=== PATIENT | female | born 1990 | race Caucasian/White ===

== ENCOUNTER 2017-08-12 09:48 | Emergency (ER) | payer OTHER ==
--- NOTE | 2017-08-12 10:20 | ED Physician Documentation ---
PD HPI FEMALE - Stated complaint Stated Complaint: FEMALE /POSS - Chief complaint Chief Complaint: Abd Pain - History obtained from History obtained from: Patient - History of Present Illness Timing - onset: Last night Timing - duration: Hours Timing - details: Abrupt onset, Still present Associated symptoms: Pelvic pain, Vaginal bleeding Contributing factors: Similar symptoms before: Has not had sx before Recently seen: Not recently seen - Additional information Additional information: 27-year-old female has had a positive test at home, had her last menstrual period at the end of June, and last night she developed acute gush of fluid followed by bleeding and cramping. She is worried about miscarriage. Review of Systems Constitutional: denies: Fever Eyes: denies: Decreased vision Ears: denies: Ear pain Nose: denies: Congestion Throat: denies: Sore throat Cardiac: denies: Chest pain / pressure Respiratory: denies: Dyspnea, Cough GI: denies: Abdominal Pain, Nausea, Vomiting : reports: Vaginal bleeding. denies: Dysuria, Frequency, Discharge Skin: denies: Rash Musculoskeletal: denies: Neck pain, Back pain PD PAST MEDICAL HISTORY - Past Medical History Past Medical History: No - Past Surgical History Past Surgical History: No - Present Medications Home Medications: Ambulatory Orders Medication Instructions Recorded Confirmed No Known Home Medications [No 08/12/17 08/12/17 Known Home Medications] - Allergies Allergies/Adverse Reactions: Allergies Allergy/AdvReac Type Severity Reaction Status Date / Time No Known Drug Allergies Allergy Verified 08/12/17 09:59 - Social History Does the pt smoke?: No Smoking Status: Never smoker Does the pt drink ETOH?: No Does the pt have substance abuse?: No - Immunizations Immunizations are current?: Yes PD ED PE NORMAL - Vitals Vital signs reviewed: Yes (tachy and hypertensive) - General General: Alert and oriented X 3, No acute distress, Well developed/nourished - HEENT HEENT: Atraumatic, PERRL - Neck Neck: Supple, no meningeal sign - Respiratory Respiratory: No respiratory distress - Back Back: No CVA TTP, No spinal TTP - Derm Derm: Normal color, Warm and dry, No rash - Extremities Extremities: No deformity, No edema - Neuro Neuro: Alert and oriented X 3, No motor deficit, No sensory deficit Eye Opening: Spontaneous Motor: Obeys Commands Verbal: Oriented GCS Score: 15 - Psych Psych: Normal mood, Normal affect Results - Vitals Vitals: Vital Signs - 24 hr 08/12/17 08/12/17 09:54 11:06 Temperature 36.8 C 36.7 C Heart Rate 126 H 81 Respiratory 18 15 Rate Blood Pressure 155/118 H 102/75 O2 Saturation 100 98 Oxygen O2 Source Room air - Labs Labs: Laboratory Tests 08/12/17 08/12/17 10:33 10:37 HCG, Quant 11408.00 Urine Color YELLOW Urine Clarity CLEAR Urine pH 6.0 Ur Specific [place] 1.010 Urine Protein NEGATIVE Urine Glucose (UA) NEGATIVE Urine Ketones NEGATIVE Urine Occult Blood TRACE-INTA Urine Nitrite NEGATIVE Urine Bilirubin NEGATIVE Urine Urobilinogen 0.2 (NORMAL) Ur Leukocyte Esterase NEGATIVE Ur Microscopic Review NOT INDICATED Urine Culture Comments NOT INDICATED Urine HCG, Qual POSITIVE - Rads (name of study) pelvic u/s Radiology: Prelim report reviewed (Impression: 1. A pole but no definite yolk sac is seen. Recommend follow-up imaging. The pole does appear to have cardiac activity. Its size results in a gestational age of 6 weeks 5 days 3 days for an EDC of 04/02/2018. This is compared with the assigned EDC of 2017 based on LMP. 2. Small robin-gestational hemorrhage.), EMP read indepedently , See rad report PD MEDICAL DECISION MAKING - ED course Complexity details: reviewed results, re-evaluated patient, considered differential, d/w patient ED course: 27-year-old female with early has developed acute bleeding and cramping and today on ultrasound evaluation she does have what appears to be an intrauterine with pole and heart tones.I have given the patient a reassuring report and that even with bleeding the fetus with a heart rate is likely to carry to term.We have provided instructions for threatened miscarriage and the patient will follow up with her primary. Departure - Departure Disposition: 01 Home, Self Care Clinical Impression: Threatened Condition: Stable Instructions: ED Miscarriage Poss Follow-Up: SUSIE HARRIS [Primary Care Provider] -
[2017-08-12 10:44] LABS: BILIRUBIN,URINE NEGATIVE (NEGATIVE)
[2017-08-12 10:45] LABS: HCG UR QUAL POSITIVE; UA CHARGE (STRIP ONLY) YES; UR CULTURE IF IND NOT INDICATED
--- NOTE | 2017-08-12 13:43 | Ultrasound Preliminary Report ---
Exam: US OB TRANSVAGINAL IMPRESSION: 1. A pole but no definite yolk sac is seen. Recommend follow-up imaging. The pole does ap pear to have cardiac activity. Its size results in a gestational age of 6 weeks 5 days + or - 3 days for an EDC of 04/02/2018. This is compared with the assigned EDC 04/08/2018 based on LMP. 2. Small robin-gestational hemorrhage. [facility] SITE ID: [id number]
--- NOTE | 2017-08-12 13:43 | Ultrasound Preliminary Report ---
Exam: US OB FIRST TRIMESTER IMPRESSION: 1. A pole but no definite yolk sac is seen. Recommend follow-up imaging. The pole does ap pear to have cardiac activity. Its size results in a gestational age of 6 weeks 5 days + or - 3 days for an EDC of 04/02/2018. This is compared with the assigned EDC 04/08/2018 based on LMP. 2. Small robin-gestational hemorrhage. [facility] SITE ID: [id number]
--- NOTE | 2017-08-12 13:46 | Ultrasound Report ---
EXAM: FIRST TRIMESTER OBSTETRIC ULTRASOUND (Less than 11 weeks) EXAM DATE: 08/12/2017 01:22 PM. CLINICAL HISTORY: Early . Bleeding and pain. Beta-hCG of 45,017. LMP: Unknown. COMPARISONS: None. TECHNIQUE: Transabdominal and transvaginal ultrasound examination with static image documentation. CLINICAL DATES: EGA 5 weeks 6 days with JACQUELINE 04/08/2018 based on and LMP of 07/02/2017. ASSESSMENT: Gestational Sac: Single intrauterine. Mean gestational sac diameter: 18 mm = 6 weeks 5 days. Embryo: CRL (crown-rump length) 3 mm = X weeks 1 day plus or -3 days. Cardiac activity: 110 beats per minute. Yolk sac: Not visualized Amniotic fluid: Not accurately assessed at this gestational age. Early placenta: Not visible at this gestational age. Other: There is a perigestational hemorrhage within the endometrial canal distal to the gestational s ac. It measures 1.3 x 1.0 cm.. MATERNAL STRUCTURES: Uterus: Anteverted. Unremarkable. Cervix: Closed. Right Ovary/Adnexa: Unremarkable. The ovary measures 2.5 x 2.0 x 3.0 cm, volume 8 cc. Left Ovary/Adnexa: Unremarkable. The ovary measures 1.9 x 1.3 x 1.9 cm, volume 2.4 cc. Free Fluid: None. Other: None. IMPRESSION: 1. A pole but no definite yolk sac is seen. Recommend follow-up imaging. The pole does ap pear to have cardiac activity. Its size results in a gestational age of 6 weeks 5 days + or - 3 days for an EDC of 04/02/2018. This is compared with the assigned EDC 04/08/2018 based on LMP. 2. Small robin-gestational hemorrhage. [facility] Referring Provider Line: [phone] SITE ID: [id number]
[2017-08-12 14:22] VITALS: BP 112/76
== END 2017-08-12 14:30 | disposition home or self-care (01) ==
LOC: ED 09:48
DX: O20.0 Threatened abortion (principal); Z3A.01 Less than 8 weeks gestation of pregnancy
CPT/HCPCS: 36415; 76801; 76817; 81001; 81003; 81025; 84702; 87086; 99283

== ENCOUNTER 2018-02-22 09:23 | Emergency (ER) | payer OTHER ==
--- NOTE | 2018-02-22 10:10 | ED Physician Documentation ---
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 swelling recently today RLE more swollen and aching up to the knee sent to ER to rule out DVT no CP SOA going well - no ctx bleeding feels baby moving Review of Systems Constitutional: denies: Fever, Chills Cardiac: denies: Chest pain / pressure Respiratory: denies: Dyspnea GI: denies: Abdominal Pain : reports: Now EGA Musculoskeletal: reports: Extremity pain, Extremity swelling Endocrine: denies: Easy bruising / bleeding Immunocompromised: denies: Immunocompromised PD PAST MEDICAL HISTORY - Past Surgical History Past Surgical History: No - Present Medications Home Medications: Ambulatory Orders Medication Instructions Recorded Confirmed Pnv No.121/Iron/Folic Acid 02/22/18 [ Multivitamin Tablet] - Allergies Allergies/Adverse Reactions: Allergies Allergy/AdvReac Type Severity Reaction Status Date / Time No Known Drug Allergies Allergy Verified 02/22/18 10:01 - Social History Does the pt smoke?: No Smoking Status: Never smoker Does the pt drink ETOH?: No Does the pt have substance abuse?: No - Immunizations Immunizations are current?: Yes PD ED PE NORMAL - Vitals Vital signs reviewed: Yes - General General: Alert and oriented X 3 - HEENT HEENT: PERRL - Neck Neck: Supple, no meningeal sign - Cardiac Cardiac: RRR - Respiratory Respiratory: No respiratory distress, Clear bilaterally - Abdomen Abdomen: Non tender, Other (gravid) - Extremities Extremities: Other (slight edema to RLE, pain with dorsi flex, no cord, MSV intact) Results - Vitals Vitals: Vital Signs - 24 hr 02/22/18 09:35 Temperature 36.2 C L Heart Rate 88 Respiratory 18 Rate Blood Pressure 126/79 O2 Saturation 100 Oxygen O2 Source Room air - Labs Labs: Laboratory Tests 02/22/18 10:13 Urine Color LIGHT YELLOW Urine Clarity CLEAR Urine pH 6.5 Ur Specific [place] <=1.005 Urine Protein NEGATIVE Urine Glucose (UA) NEGATIVE Urine Ketones NEGATIVE Urine Occult Blood NEGATIVE Urine Nitrite NEGATIVE Urine Bilirubin NEGATIVE Urine Urobilinogen 0.2 (NORMAL) Ur Leukocyte Esterase NEGATIVE Ur Microscopic Review NOT INDICATED Urine Culture Comments NOT INDICATED - Rads (name of study) doppler Radiology: See rad report (neg) PD MEDICAL DECISION MAKING - Sepsis Event Vital Signs: Vital Signs - 24 hr 02/22/18 09:35 Temperature 36.2 C L Heart Rate 88 Respiratory 18 Rate Blood Pressure 126/79 O2 Saturation 100 Oxygen O2 Source Room air Departure - Departure Disposition: 01 Home, Self Care Clinical Impression: Leg swelling in Qualifiers: Trimester: third trimester Qualified Code(s): O12.03 - Gestational edema, third trimester Condition: Good Comments: The doppler was negative for a blood clot If the swelling worsens I would recommend a repeat doppler next week - occasionally a small clot can be hard to see on the intial ultrasound Also your blood pressure was fine and there is not protein in your urine so i don't think the swelling is due to pre-eclampsia Recommend elevating your legs when possible and consider wearing support stocking if you will be on your feet all day. Follow up with your OB Return if worse
[2018-02-22 10:25] LABS: BILIRUBIN,URINE NEGATIVE (NEGATIVE); GLUCOSE, URINE (UA) NEGATIVE (NEGATIVE); KETONES,URINE (UA) NEGATIVE (NEGATIVE); LEUKOCYTE ESTERASE, URINE NEGATIVE (NEGATIVE); NITRITE,URINE NEGATIVE (NEGATIVE); OCCULT BLOOD,URINE NEGATIVE (NEGATIVE); PH,URINE 6.5 PH (5.0-7.5); PROTEIN,URINE NEGATIVE (NEGATIVE); UROBILINOGEN,URINE 0.2 (NORMAL) E.U./dL (NORMAL)
[2018-02-22 10:29] LABS: CLARITY,URINE CLEAR (CLEAR)
--- NOTE | 2018-02-22 12:30 | Ultrasound Report ---
Procedure Date: 02/22/2018 Accession Number: [id number] / [id number] Procedure: US - Duplex Ext Veins Right CPT Code: FULL RESULT: EXAM: Duplex Ext Veins Right DATE: 02/22/2018 11:10 AM CLINICAL HISTORY: RLE swelling COMPARISON: None. TECHNIQUE: Real-time sonographic vascular imaging was performed by the mobile home lot utility worker through the lower extremity utilizing both color-flow and Doppler spectral analysis. Multiple retail service representative static images were saved for review. FINDINGS: Right side Common Femoral Vein (CFV): Normal. Superficial Femoral Vein (SFV) Prox: Normal. Superficial Femoral Vein (SFV) Mid: Normal. Superficial Femoral Vein (SFV) Dist: Normal. Popliteal Vein: Normal. Posterior Tibial Veins: Normal. Peroneal Veins: Normal. Other: None. IMPRESSION: Negative. No evidence for deep venous thrombosis right lower extremity. [facility]
[2018-02-22 13:18] VITALS: BP 123/77
== END 2018-02-22 13:18 | disposition home or self-care (01) ==
LOC: ED 09:23
DX: O12.03 Gestational edema, third trimester (principal); Z3A.33 33 weeks gestation of pregnancy
CPT/HCPCS: 81001; 81003; 87086; 99282; 99283

== ENCOUNTER 2018-03-15 15:06 | Outpatient (CLI) | payer OTHER | END 2018-03-15 15:07 | disposition home or self-care (01) | LOC: LAB.R 15:06 | PROVIDERS: ATTEND Nurse Practitioner Obstetrics & Gynecology | DX: Z36.85 Encounter for antenatal screening for Streptococcus B (principal) | CPT/HCPCS: 87081 ==

== ENCOUNTER 2018-03-26 14:50 | Inpatient (IN) | payer OTHER ==
[2018-03-26 15:58] LABS: BASOPHILS # (AUTO) 0.1 10^3/uL (0.0-0.1); EOSINOPHILS # (AUTO) 0.1 10^3/uL (0.0-0.7); EOSINOPHILS % (AUTO) 0.9 %; LYMPHOCYTES # (AUTO) 1.7 10^3/uL (1.5-3.5); LYMPHOCYTES % (AUTO) 19.7 %; MEAN CORPUSCULAR HEMOGLOBIN 30.6 pg (27.0-31.0); MEAN CORPUSCULAR HGB CONC 33.4 g/dL (32.0-36.0); MEAN CORPUSCULAR VOLUME 91.6 fL (81.0-99.0); MEAN PLATELET VOLUME 9.8 fL (7.9-10.8); MONOCYTES # (AUTO) 0.6 10^3/uL (0.0-1.0); MONOCYTES % (AUTO) 7.6 %; NEUTROPHILS # (AUTO) 6.1 10^3/uL (1.5-6.6); NEUTROPHILS % (AUTO) 70.8 %; PLT - PLATELET COUNT 185 10^3/uL (130-450); RED CELL DISTRIBUTION WIDTH 13.5 % (12.0-15.0); WHITE BLOOD COUNT 8.6 x10^3/uL (4.8-10.8)
[2018-03-26 16:41] LABS: CREATININE,URINE 39.9 mg/dL; PROTEIN/CREATININE RATIO,URINE 3.4 (<=0.2)
[2018-03-26] MEDS ORDERED: fentaNYL 100 MCG/2 ML VIAL IVP PRN (16:50)
[2018-03-26] MEDS ORDERED: SODIUM CHLORIDE FLUSH 0.9% 10 ML SYRINGE IVP PRN (16:50)
[2018-03-26] MEDS ORDERED: ONDANSETRON 4 MG/2 ML VIAL IVP PRN ×2 (16:50→22:56)
[2018-03-26] MEDS ORDERED: OXYTOCIN/SODIUM CHLORIDE 500 ML IV SCH (17:00)
--- NOTE | 2018-03-26 17:16 | HISTORY & PHYSICAL EXAMINATION ---
Admit History - Instructions Jena/Slash: -Left hand click circles element as positive or present. -Right hand click slashes element as negative or not present. - Visit Reason Visit Reason: Other - : 2 Parity: 0 Premature: 0 Ectopic: 0 : 1 Care: positive: [facility] Risk/History: positive: None Complications This : positive: Pre-eclampsia Smoking Status: Never smoker - Mother's Labs Mother's Blood Type: positive: O Mother's RH: positive: Positive GBS: positive: Group B Step Negative Rubella Status: positive: Immune Meds/Allgy - Home Medications Home Medications: Ambulatory Orders Medication Instructions Recorded Confirmed Pnv No.121/Iron/Folic Acid 02/22/18 [ Multivitamin Tablet] - Allergies Allergies/Adverse Reactions: Allergies Allergy/AdvReac Type Severity Reaction Status Date / Time No Known Drug Allergies Allergy Verified 02/22/18 10:01 Physical - Abdominal Exam Vital Signs: Temp Pulse Resp BP Pulse Ox 36.9 C 66 18 149/105 H 100 03/26/18 15:02 03/26/18 16:20 03/26/18 15:02 03/26/18 16:20 03/26/18 15:02 Uterine Resting Tone: positive: Soft - Monitoring Heart Rate Baseline: 150 Strip Review: positive: Category I - Presentation Presentation: positive: Vertex - Vaginal Exam Membranes: positive: Membranes intact Dilation (in cm): 3 Effacement (%): 80 Station: positive: -2 Plan for Labor - Plan For Labor I expect patient to be DC'd or transferred within 96 hours.: Yes Plan for Labor: P: AROM Labetalol 100mg PO now Pitocin initiation per protocol Continuous monitoring Serial BP monitoring Epidural per maternal request Plan of care reviewed with Dr. Doss, relationship management lead physician.
[2018-03-26] MEDS ORDERED: LABETALOL 100 MG TABLET PO ONE (17:21)
[2018-03-26] MEDS: LABETALOL 100 MG TABLET PO SCH ×2 (17:44→22:34)
[2018-03-26] MEDS: SODIUM CHLORIDE FLUSH 0.9% 10 ML SYRINGE IVP SCH (17:51)
[2018-03-26] MEDS: LACTATED RINGERS 1,000 ML IV SCH (18:15)
--- NOTE | 2018-03-26 18:17 | PROVIDER PROGRESS NOTE ---
Labor Progress Note - Labor Progress Note Labor Progress Note/Additional Text: 27 yo with a 38w0d IUP Severe pre-eclampsia Consult requested by ANDRA Milner. Agree that patient will need delivery. Recommend MgSO4 for seizure prophylaxis. Start labetalol 100 mg BID to decrease BP. Titrate labetalol to keep BP's in 140-150/80-90's. Will need to continue MgSO4 at least 12 - 24 hours post delivery. Will monitor closely and be happy to take the patient onto the obstetrical service if necessary. Consult dictated: [id number]
--- NOTE | 2018-03-26 18:21 | PROVIDER PROGRESS NOTE ---
Labor Progress Note - Uterine Monitoring Uterine Monitoring Mode: positive: External toco Contraction Frequency (min/apart): 4-6 Contraction Intensity: positive: Mild to moderate Uterine Resting Tone: positive: Soft - Monitoring Monitor Mode: positive: External ultrasound Heart Rate Baseline: 145 Heart Rate Variability: positive: Moderate (6-25 bmp) Accelerations: positive: Present, 15x15 Decelerations: positive: None Strip Review: positive: Category I - Vaginal Exam Dilation (in cm): 3 Effacement (%): 80 Station: -1 Cervical Position: Posterior - Labor Progress Note Labor Progress Note/Additional Text: HPI: Alejandra presents to L&D from the office secondary to increased BP and 3+ proteinuria. NST reactive. Admit to L&D for active management of moderate preeclampsia. S: Pt sitting up in bed for IV start. She is nervous/anxious about being induced and especially nervous about the diagnosis of preeclampsia. She denies SHEEHAN, visual disturbances, RUQ or epigastric pain. Reviewed risks of preeclampsia significantly outweigh the risks of induction. O: BP 149-172/100-106. Protein/creatinine ratio 3.4. Brisk DTRs, no clonus. Hgb 12.0, Hct 35.8, PTL 185, Uric acid 6.0, AST 2.4, LDH 154. Heart RRR w/o M/G/R, lungs CTAB, abdomen gravid, soft, nontender. No RUQ tenderness upon palpation. Bilateral LE's no edema. FHR baseline 145, moderate variability, + accels, no decels. Contractions palpate mild every 3-6 minutes. A: 27yo @ 38.1wks gestation Moderate preeclampsia GBS negative FHR Category I P: MgSO4 initiated for seizure prophylaxis Labetalol 100mg PO bid administered AROM at next SVE Initiation of pitocin per protocol Continuous monitoring. Epidural per maternal request. Dr. Doss, developer relations manager physician notified of patient status and plan of care and is in agreement with the above plan. Will continue to update with patient status change.
--- NOTE | 2018-03-26 18:48 | CONSULTATION NOTE ---
DATE OF SERVICE: 03/26/2018 Physician: Tiarra Doss DO FACOG IDENTIFICATION: This is a 27-year-old G2, P0-0-1-0, with 38 and 0/7-week intrauterine . EDC is 04/09/2018, consistent with a 7-week ultrasound. HISTORY OF PRESENT ILLNESS: I was consulted by Aleshia Milner, ANDRA, DESTINEE to see the patient. She is a patient of the midwifery service here at [facility]. Dolores is a transfer of care from [facility] at about 30 weeks' gestation. She has been seen continuously at our clinic since then. The patient's care with us from 30 weeks' gestation to 36 weeks' gestation has been essentially unremarkable. However today, at her appointment, she was noted to have new onset of blood pressure of 142/90 and 150 /90. Cervical examination in the clinic revealed she was 3 cm dilated, 80% effaced, and 0 station. She was therefore sent over to Labor and Delivery for evaluation of preeclampsia. The patient's labs revealed platelets of 185, uric acid 6.0, AST 24, LDH 154, and a urine protein:creatinine ratio of 3.4. It was noted that she did dip 3+ protein during her clinic visit earlier today. Her labor and delivery blood pressures also reflect her hypertension noted in the office. They were 166/100, 174/110, 174/104, 164/106, and 149/105. The nonstress test is currently reactiveand category 1. There are no decelerations. Given the current clinical situation, the patient does meet criteria for severe preeclampsia. I strongly agree with Aleshia that we should proceed with induction of labor and delivery. In addition, given her diagnosis of severe preeclampsia, I would recommend that we place her on magnesium sulfate for seizure prophylaxis. She should have magnesium sulfate for a minimum of 12-24 hours after delivery. The obstetrical service will continue to consult on the patient and will be happy to take over management should the midwifery service become hesitant about caring for the patient. PAST MEDICAL HISTORY: Unremarkable. She denies any hypertension, diabetes, or thyroid disorder. PAST SURGICAL HISTORY: Appendectomy. ALLERGIES: NO KNOWN DRUG ALLERGIES. MEDICATIONS: vitamins. SOCIAL HISTORY: She denies any tobacco, alcohol, or illicit drug use. This is a female fetus with anticipated name of Liza, and her is Kayden but goes by the nickname Kori. PAST OBSTETRICAL HISTORY: One spontaneous at about 4 weeks' gestation. PAST GYNECOLOGICAL HISTORY: She has had one colposcopy with spontaneous reversion to normal Pap smears afterwards. FAMILY HISTORY: No female carcinoma. REVIEW OF SYSTEMS: Negative unless otherwise stated. OBJECTIVE: Blood pressure 149/105, heart rate 66. We will defer physical examination to pumper gauger apprentice, Bettye, examination. LABORATORY DATA: Blood type O positive. GBS negative. Chlamydia and gonorrhea both negative. Rubella immune. RPR nonreactive. Hepatitis B surface antigen is negative. Hepatitis C is negative. HIV nonreactive. A 7-week ultrasound, on 08/22/2017, is consistent with dates with crown-rump length of 1.1 cm, corresponding to 7 weeks 2 days. On 11/23/2017, anatomical survey is consistent with dates and within normal limits. Anterior placenta. Cervix measured 3.8 cm. ASSESSMENT 1. A 27-year-old G2, P1-0-0-1 with a 38 and 0/7-week intrauterine . 2. Severe preeclampsia. PLAN 1. Agree with induction of labor. 2. Recommend starting labetalol 100 mg 1 tab p.o. b.i.d. and increase as appropriate. 3. Recommend magnesium sulfate for seizure prophylaxis at this time. Will need to continue at least for 12 to 24 hours . 4. We will continue close monitoring, and we will be happy to take over at any point in time. TD: 03/26/2018 18:09 GENEVA
[2018-03-26] MEDS: MAGNESIUM SULFATE 2 GRAM 2 GM/50 ML BAG IV SCH ×2 (19:04→19:23)
[2018-03-26] MEDS: MAGNESIUM SULFATE IN WATER 20 GM/500 ML IV.SOLN IV SCH (19:46)
[2018-03-26] MEDS ORDERED: SODIUM CHLORIDE FLUSH 0.9% 10 ML SYRINGE ONE (20:24)
[2018-03-26] MEDS ORDERED: fent/BUPIV 2 MCG/0.125% 250 ML EP ONE (21:23)
[2018-03-26] MEDS ORDERED: ROPIVACAINE 0.2% PF 20 ML AMPULE ONE (21:24)
[2018-03-26] MEDS ORDERED: ROPIVACAINE 0.2% PF 10 ML AMPULE EPI ONE (22:00)
[2018-03-26] MEDS ORDERED: ePHEDrine 50 MG/ML VIAL IVP PRN (22:56)
[2018-03-26] MEDS ORDERED: LACTATED RINGERS 500 ML IV ONE (22:56)
[2018-03-26] MEDS ORDERED: diphenhydrAMINE INJ 50 MG/ML VIAL IVP PRN (22:56)
[2018-03-26] MEDS ORDERED: NALBUPHINE 10 MG/ML AMP IVP PRN (22:56)
[2018-03-26] MEDS ORDERED: METOCLOPRAMIDE 10 MG/2 ML VIAL IVP PRN (22:56)
[2018-03-26] MEDS ORDERED: NALOXONE 0.4 MG/ML VIAL IVP PRN (22:56)
[2018-03-26] MEDS: ACETAMINOPHEN 325 MG TABLET PO PRN (23:35)
--- NOTE | 2018-03-26 23:41 | PROVIDER PROGRESS NOTE ---
Labor Progress Note - Uterine Monitoring Uterine Monitoring Mode: positive: External toco Contraction Frequency (min/apart): 2-3 Contraction Intensity: positive: Moderate to strong Uterine Resting Tone: positive: Soft - Monitoring Monitor Mode: positive: External ultrasound Heart Rate Baseline: 140 Heart Rate Variability: positive: Moderate (6-25 bmp) Accelerations: positive: Present, 15x15 Decelerations: positive: None Strip Review: positive: Category I - Vaginal Exam Dilation (in cm): 4 Effacement (%): 80 Station: 0 Cervical Position: Midposition - Labor Progress Note Labor Progress Note/Additional Text: S: Pt laying comfortably in bed on left side with epidural. Feeling moderate headache. Denies photophobia or nausea. Denies visual disturbances, RUQ or epigastric pain. supportive at the bedside. Slight fatigue. O: FHR baseline 140, moderate variability, + accels, no decels. Contractions palpate strong every 2-4 minutes with soft resting tone. SVE 4/80/0, vertex, medium consistency, soft. BP 127/92, P 81, Afebrile Pitocin @ 6 MgSO4 3g/hr maintenance dose A: 27yo @ 38.0 wks gestation Moderate preeclampsia S/p MgSO4 6g loading dose BP improved with administration of 100mg PO labetalol AROM x 5 hours - Afebrile GBS neg P: Continue MgSO4 administration @ 3g/hr maintenance Continue titration of pitocin per protocol Continue labetalol 100mg PO bid and titrate per BP PRN Repeat PIH labs and MgSO4 level pending. Epidural working well for pain management. Anticipate spontaneous vaginal delivery
[2018-03-26 23:47] LABS: BASOPHILS # (AUTO) 0.1 10^3/uL (0.0-0.1); BASOPHILS % (AUTO) 0.9 %; EOSINOPHILS % (AUTO) 0.2 %; HGB - HEMOGLOBIN 11.5 g/dL (12.0-16.0); LYMPHOCYTES # (AUTO) 1.4 10^3/uL (1.5-3.5); LYMPHOCYTES % (AUTO) 12.2 %; MEAN CORPUSCULAR HEMOGLOBIN 30.5 pg (27.0-31.0); MEAN CORPUSCULAR HGB CONC 34.1 g/dL (32.0-36.0); MEAN CORPUSCULAR VOLUME 89.7 fL (81.0-99.0); MEAN PLATELET VOLUME 10.2 fL (7.9-10.8); MONOCYTES # (AUTO) 0.6 10^3/uL (0.0-1.0); MONOCYTES % (AUTO) 5.5 %; NEUTROPHILS # (AUTO) 9.3 10^3/uL (1.5-6.6); NEUTROPHILS % (AUTO) 81.2 %; PLT - PLATELET COUNT 189 10^3/uL (130-450); RED BLOOD COUNT 3.76 10^6/uL (4.20-5.40); WHITE BLOOD COUNT 11.5 x10^3/uL (4.8-10.8)
[2018-03-26 23:56] LABS: URIC ACID 3.9 mg/dL (2.6-7.2)
[2018-03-27] MEDS ORDERED: LACTATED RINGERS 1,000 ML IV ONE (01:58)
[2018-03-27] MEDS: LACTATED RINGERS 1,000 ML IV SCH (03:21)
[2018-03-27] MEDS ORDERED: ACETAMINOPHEN 500 MG TABLET PO PRN (05:25)
[2018-03-27] MEDS: MAGNESIUM SULFATE IN WATER 20 GM/500 ML IV.SOLN IV SCH ×2 (05:43→15:51)
[2018-03-27] MEDS: ACETAMINOPHEN 325 MG TABLET PO PRN (05:45)
--- NOTE | 2018-03-27 08:08 | PROVIDER PROGRESS NOTE ---
Labor Progress Note - Uterine Monitoring Uterine Monitoring Mode: positive: External toco Contraction Frequency (min/apart): 2-6 Contraction Intensity: positive: Strong Uterine Resting Tone: positive: Soft - Monitoring Monitor Mode: positive: External ultrasound Heart Rate Baseline: 140 Heart Rate Variability: positive: Moderate (6-25 bmp) Accelerations: positive: Present, 15x15 Decelerations: positive: Early, Late Strip Review: positive: Category II - Vaginal Exam Dilation (in cm): 8 Effacement (%): 100 Station: 1 - Labor Progress Note Labor Progress Note/Additional Text: S: Patient breathing through contractions and feels her epidural is no longer relieving her pain. She rates her pain 9/10. Reports moderate headache. Denies visual disturbances, RUQ or epigastric pain. supportive at the bedside. O: BP 138/96, P 109; 99% O2 on Room Air; Afebrile FHR baseline 150, moderate variability, + accels, occasional early decelerations , one late deceleration which quickly returned to baseline. Contractions palpate strong every 1.5-4.5min lasting 60-90 seconds with soft resting tone. SVE8/100/-1, anterior, soft. A: 27yo @ 38.1 wks gestation Moderate preeclampsia GBS neg FHR Category II - overall reassuring P: Continue MgSO4 administration for seizure prophylaxis at 2g/hr maintenance Labetalol 100mg PO bid adminstration will occur at 0900. Shell Azevedo CRNA at bedside to bolus patient's epidural due to her continued discomfort and inadequate pain control. Continuous monitoring Plan of care reviewed with Dr. Leahy, innovation analyst physician whom is aware of patient 's status and is in agreement with the above plan. Anticipate spontaneous vaginal delivery Patient and denies further questions or concerns at this time. Reevaluate in 2 hours or sooner PRN.
[2018-03-27] MEDS ORDERED: fentaNYL 100 MCG/2 ML VIAL ONE (08:11)
[2018-03-27 08:23] LABS: BASOPHILS # (AUTO) 0.1 10^3/uL (0.0-0.1); BASOPHILS % (AUTO) 0.5 %; EOSINOPHILS % (AUTO) 0.2 %; HGB - HEMOGLOBIN 11.8 g/dL (12.0-16.0); LYMPHOCYTES # (AUTO) 1.3 10^3/uL (1.5-3.5); LYMPHOCYTES % (AUTO) 9.5 %; MEAN CORPUSCULAR HEMOGLOBIN 30.4 pg (27.0-31.0); MEAN CORPUSCULAR HGB CONC 33.2 g/dL (32.0-36.0); MEAN CORPUSCULAR VOLUME 91.5 fL (81.0-99.0); MEAN PLATELET VOLUME 9.6 fL (7.9-10.8); MONOCYTES # (AUTO) 0.9 10^3/uL (0.0-1.0); MONOCYTES % (AUTO) 6.4 %; NEUTROPHILS # (AUTO) 11.1 10^3/uL (1.5-6.6); NEUTROPHILS % (AUTO) 83.4 %; PLT - PLATELET COUNT 196 10^3/uL (130-450); RED BLOOD COUNT 3.88 10^6/uL (4.20-5.40); RED CELL DISTRIBUTION WIDTH 13.4 % (12.0-15.0); WHITE BLOOD COUNT 13.3 x10^3/uL (4.8-10.8)
[2018-03-27 08:35] LABS: URIC ACID 6.7 mg/dL (2.6-7.2)
[2018-03-27] MEDS: LABETALOL 100 MG TABLET PO SCH ×2 (09:03→20:31)
--- NOTE | 2018-03-27 09:35 | PROVIDER PROGRESS NOTE ---
Labor Progress Note - Uterine Monitoring Uterine Monitoring Mode: positive: External toco Contraction Intensity: positive: Moderate to strong - Monitoring Monitor Mode: positive: External ultrasound Heart Rate Baseline: 140's Heart Rate Variability: positive: Moderate (6-25 bmp) Accelerations: positive: Present, 15x15 Decelerations: positive: None Strip Review: positive: Category I - Labor Progress Note Labor Progress Note/Additional Text: 27 yo with a 38w1d IUP Severe pre-eclampsia Theraputic level of Magnesium Good labor progress. Expect shortly Continue MgSO4 2 gm/ hr for at least 12 - 24 hours depending on clinical situation
[2018-03-27] MEDS ORDERED: miSOPROStol 200 MCG TABLET PO STA (10:05)
[2018-03-27] MEDS ORDERED: miSOPROStol 100 MCG TABLET BC SCH (10:05)
[2018-03-27] MEDS ORDERED: WITCH HAZEL/GLYCERIN 1 EACH MED..PAD TOP PRN (10:19)
[2018-03-27] MEDS ORDERED: OXYTOCIN/SODIUM CHLORIDE 250 ML IV ONE (10:19)
[2018-03-27] MEDS ORDERED: HYDROCORTISONE/PRAMOXINE 10 GM PR PRN (10:19)
--- NOTE | 2018-03-27 10:41 | DELIVERY NOTE ---
Delivery Note - Labor Labor: positive: Augmented by ARM, Augmented by oxytocin - Delivery Method Delivery Method: positive: Spontaneous vaginal delivery - Presentation Presentation: positive: Vertex, ISMAEL - left occiput anterior - Nuchal Cord Nuchal Cord: positive: None - Amniotic Fluid Description Amniotic Fluid Description: positive: Clear - Episiotomy Type Episiotomy Type: positive: None - Laceration Laceration: positive: None - Delivery Outcome Delivery Outcome: positive: Livebirth - Benedict : positive: Placed in direct skin contact with mother, Bulb syringe, Stimulated, Warmed, [place] used sex: positive: Female - Cord Cord: positive: 3 vessels - Placenta Placenta: positive: Intact, Spontaneous - Estimated Blood Loss Estimated Blood Loss (in cc): 400 - Post Delivery Events Post Delivery Events: positive: No post delivery events - Delivery Comments (Free Text/Narrative) Delivery Comments (Free Text/Narrative): Labor: This 27yo @ 38.1wks gestation presented 03/26/2018 from the office for evaluation of acute hypertension. Lab evaluation met diagnostic criteria for moderate preeclampsia. Cervix was 3/80/-2 and she was admitted to [facility] for active management. 100mg labetalol PO administered and has adequately controlled her BP throughout her labor course. She received MgSO4 6g bolus followed by MgSO4 2 g/hr maintenance dose. AROM at 1900 on 03/26/2018, a moderate amount of clear fluid. Epidural per maternal request. Pitocin administered for augmentation of labor for a max dosage of 18. FHR baseline 140s with few early variable decelerations and one late deceleration with quick return to baseline - overall Category I and reassuring. The patient progressed to c/c/+1 with urge to push and adequate maternal pushing effort at 0908. : Normal of viable female infant name Liza Chambers. No nuchal. Umbilical cord avulsed with movement of infant from perineum to maternal abdomen for an EBL of maximum 25mL as it was clamped in a timely fashion. ' s 7 and 8 at 1 and 5 min respectively at 1002 on 03/27/2018. The was placed on maternal abdomen, stimulated, dried, and placed skin to skin. Unable to obtain cord blood due to cord avulsing. Placenta delivered spontaneously and intact at 1004. 3VC. Pitocin administered via IV for hemostasis. Brisk vaginal bleeding noted with intermediate return to firm with vigorous fundal massage. With discontinuation of fundal massage, brisk vaginal bleeding was again noted and 600mcg cytotec BC administered. No further bleeding noted. EBL 400mL. The perineum, vagina, and cervix were inspected and found to be intact. Infant skin to skin and family is bonding well. Both mother and baby are in stable condition.
[2018-03-27] MEDS ORDERED: LACTATED RINGERS 1,000 ML IV SCH (11:00)
[2018-03-27] MEDS: IBUPROFEN 800 MG TABLET PO PRN ×2 (14:37→22:38)
--- NOTE | 2018-03-27 15:31 | PROVIDER PROGRESS NOTE ---
Subjective - Subjective Subjective: S: Patient tired. Struggling slightly with . States baby is able to get latched for short intervals. Maternal colostrum is able to be hand expressed. Bleeding moderate. Denies SHEEHAN, visual disturbances, RUQ or epigastric pain. O: Hgb 12.o-->11.5-->11.8; Hct 35.8-->33.8-->35.5; PLT 185-->189-->196 Uric acid 6.0-->3.9-->6.7; AST 24-->12-->24; LDH 154-->126-->157 MgSO4 5.2-->5.9 Afebrile; normotensive A: 27yo @ 38.1wks gestation Severe preeclampsia S/p MgSO4 6g bolus dose initially MgSO4 2g/hr maintenance infusing Labetalol 100mg PO bid P: Continue MgSO4 until 24 hours Serial BPs with administration of 100mg labetalol PO bid Plan of care reviewed with Dr. Leahy, public relations director physician, who is in agreement with above plan. Objective - Vital Signs/Intake & Output Vital Signs: Vital Signs x48h Temp Pulse Resp BP Pulse Ox 03/27/18 15:23 37.1 C 91 16 119/82 H 98 Intake & Output: Intake & Output 03/24/18 03/25/18 03/26/18 03/27/18 23:59 23:59 23:59 23:59 Intake Total 162.444 1863.533 Output Total 275 1625 Balance -74.650 -77.467 - Lab Results Fish Bones: 03/27/18 08:12 Other Labs: Lab Results x24hrs 03/27/18 03/27/18 03/27/18 Range/Units 08:12 08:12 08:12 WBC 13.3 H (4.8-10.8) x10^3/uL RBC 3.88 L (4.20-5.40) 10^6/uL Hgb 11.8 L (12.0-16.0) g/dL Hct 35.5 L (37.0-47.0) % MCV 91.5 (81.0-99.0) fL MCH 30.4 (27.0-31.0) pg MCHC 33.2 (32.0-36.0) g/dL RDW 13.4 (12.0-15.0) % Plt Count 196 (130-450) 10^3/uL MPV 9.6 (7.9-10.8) fL Neut # (Auto) 11.1 H (1.5-6.6) 10^3/uL Lymph # (Auto) 1.3 L (1.5-3.5) 10^3/uL Hart # (Auto) 0.9 (0.0-1.0) 10^3/uL Eos # (Auto) 0.0 (0.0-0.7) 10^3/uL Baso # (Auto) 0.1 (0.0-0.1) 10^3/uL Absolute Nucleated RBC 0.01 x10^3/uL Nucleated RBC % 0.0 /100WBC Uric Acid 6.7 (2.6-7.2) mg/dL Magnesium 5.9 H* (1.7-2.8) mg/dL AST 24 (10-42) IU/L Lactate Dehydrogenase (91-225) IU/L Urine Creatinine mg/dL Ur Total Protein Timed mg/dL Protein/Creatinin Ratio (<=0.2) Blood Type 03/27/18 03/26/18 03/26/18 Range/Units 08:12 23:35 23:35 WBC 11.5 H (4.8-10.8) x10^3/uL RBC 3.76 L (4.20-5.40) 10^6/uL Hgb 11.5 L (12.0-16.0) g/dL Hct 33.8 L (37.0-47.0) % MCV 89.7 (81.0-99.0) fL MCH 30.5 (27.0-31.0) pg MCHC 34.1 (32.0-36.0) g/dL RDW 13.0 (12.0-15.0) % Plt Count 189 (130-450) 10^3/uL MPV 10.2 (7.9-10.8) fL Neut # (Auto) 9.3 H (1.5-6.6) 10^3/uL Lymph # (Auto) 1.4 L (1.5-3.5) 10^3/uL Hart # (Auto) 0.6 (0.0-1.0) 10^3/uL Eos # (Auto) 0.0 (0.0-0.7) 10^3/uL Baso # (Auto) 0.1 (0.0-0.1) 10^3/uL Absolute Nucleated RBC 0.00 x10^3/uL Nucleated RBC % 0.0 /100WBC Uric Acid 3.9 (2.6-7.2) mg/dL Magnesium (1.7-2.8) mg/dL AST 12 (10-42) IU/L Lactate Dehydrogenase 157 (91-225) IU/L Urine Creatinine mg/dL Ur Total Protein Timed mg/dL Protein/Creatinin Ratio (<=0.2) Blood Type 03/26/18 03/26/18 03/26/18 Range/Units 23:35 23:25 21:41 WBC (4.8-10.8) x10^3/uL RBC (4.20-5.40) 10^6/uL Hgb (12.0-16.0) g/dL Hct (37.0-47.0) % MCV (81.0-99.0) fL MCH (27.0-31.0) pg MCHC (32.0-36.0) g/dL RDW (12.0-15.0) % Plt Count (130-450) 10^3/uL MPV (7.9-10.8) fL Neut # (Auto) (1.5-6.6) 10^3/uL Lymph # (Auto) (1.5-3.5) 10^3/uL Hart # (Auto) (0.0-1.0) 10^3/uL Eos # (Auto) (0.0-0.7) 10^3/uL Baso # (Auto) (0.0-0.1) 10^3/uL Absolute Nucleated RBC x10^3/uL Nucleated RBC % /100WBC Uric Acid (2.6-7.2) mg/dL Magnesium 5.2 H* (1.7-2.8) mg/dL AST (10-42) IU/L Lactate Dehydrogenase 126 (91-225) IU/L Urine Creatinine mg/dL Ur Total Protein Timed mg/dL Protein/Creatinin Ratio (<=0.2) Blood Type O POSITIVE 03/26/18 03/26/18 03/26/18 Range/Units 15:35 15:35 15:35 WBC 8.6 (4.8-10.8) x10^3/uL RBC 3.90 L (4.20-5.40) 10^6/uL Hgb 12.0 (12.0-16.0) g/dL Hct 35.8 L (37.0-47.0) % MCV 91.6 (81.0-99.0) fL MCH 30.6 (27.0-31.0) pg MCHC 33.4 (32.0-36.0) g/dL RDW 13.5 (12.0-15.0) % Plt Count 185 (130-450) 10^3/uL MPV 9.8 (7.9-10.8) fL Neut # (Auto) 6.1 (1.5-6.6) 10^3/uL Lymph # (Auto) 1.7 (1.5-3.5) 10^3/uL Hart # (Auto) 0.6 (0.0-1.0) 10^3/uL Eos # (Auto) 0.1 (0.0-0.7) 10^3/uL Baso # (Auto) 0.1 (0.0-0.1) 10^3/uL Absolute Nucleated RBC 0.00 x10^3/uL Nucleated RBC % 0.0 /100WBC Uric Acid 6.0 (2.6-7.2) mg/dL Magnesium (1.7-2.8) mg/dL AST 24 (10-42) IU/L Lactate Dehydrogenase 154 (91-225) IU/L Urine Creatinine mg/dL Ur Total Protein Timed mg/dL Protein/Creatinin Ratio (<=0.2) Blood Type 03/26/18 Range/Units 15:15 WBC (4.8-10.8) x10^3/uL RBC (4.20-5.40) 10^6/uL Hgb (12.0-16.0) g/dL Hct (37.0-47.0) % MCV (81.0-99.0) fL MCH (27.0-31.0) pg MCHC (32.0-36.0) g/dL RDW (12.0-15.0) % Plt Count (130-450) 10^3/uL MPV (7.9-10.8) fL Neut # (Auto) (1.5-6.6) 10^3/uL Lymph # (Auto) (1.5-3.5) 10^3/uL Hart # (Auto) (0.0-1.0) 10^3/uL Eos # (Auto) (0.0-0.7) 10^3/uL Baso # (Auto) (0.0-0.1) 10^3/uL Absolute Nucleated RBC x10^3/uL Nucleated RBC % /100WBC Uric Acid (2.6-7.2) mg/dL Magnesium (1.7-2.8) mg/dL AST (10-42) IU/L Lactate Dehydrogenase (91-225) IU/L Urine Creatinine 39.9 mg/dL Ur Total Protein Timed 135 mg/dL Protein/Creatinin Ratio 3.4 H (<=0.2) Blood Type
--- NOTE | 2018-03-27 17:51 | PROVIDER PROGRESS NOTE ---
Subjective - Subjective Subjective: S: Patient sitting up in bed . Improved ease of and baby is vigorous at the breast. Bleeding minimal. Mood is good although she is fatigued. Denies SHEEHAN, visual disturbances, RUQ or epigastric pain. O: BP normotensive. Afebrile. Heart RRR w/o M/G/R, lungs CTAB. Abdomen soft and nontender with fundus firm at U-2. Light lochia rubra. Bilateral LE's no edema. DTRs 2+, no clonus. MgSO4 maintenance dose infusing at 2g/hr. A: 27yo s/p TSVD of viable female Severe preeclampsia S/p MgSO4 6g bolus Labetalol 100mg PO bid GBS neg P: Gibbs catheter placed to adequately measuring input and output. IV fluids at 80mL/hr Fluids restricted to 250mL/hr Repeat PIH labs and MgSO4 level ordered Continue other routine pp care and medications. Objective - Vital Signs/Intake & Output Vital Signs: Vital Signs x48h Temp Pulse Resp BP Pulse Ox 03/27/18 15:23 37.1 C 91 16 119/82 H 98 03/27/18 14:00 37.2 C 86 16 121/82 H 99 03/27/18 13:30 37.3 C 87 16 117/84 H 99 03/27/18 13:00 86 16 126/85 H 99 03/27/18 12:30 96 16 113/78 99 03/27/18 12:15 96 16 121/76 99 03/27/18 11:45 37.5 C 93 16 118/83 H 99 03/27/18 11:30 98 16 124/92 H 100 03/27/18 11:15 96 16 131/77 H 99 03/27/18 11:00 102 H 16 128/80 98 03/27/18 10:45 104 H 16 131/84 H 98 03/27/18 10:30 106 H 16 136/95 H 99 03/27/18 10:15 115 H 18 139/71 H 99 03/27/18 10:01 37.1 C 129 H 18 158/117 H 99 Intake & Output: Intake & Output 03/24/18 03/25/18 03/26/18 03/27/18 23:59 23:59 23:59 23:59 Intake Total 970.685 7013.533 Output Total 275 1625 Balance -74.650 672.533 - Lab Results Fish Bones: 03/27/18 08:12 Other Labs: Lab Results x24hrs 03/27/18 03/27/18 03/27/18 Range/Units 08:12 08:12 08:12 WBC 13.3 H (4.8-10.8) x10^3/uL RBC 3.88 L (4.20-5.40) 10^6/uL Hgb 11.8 L (12.0-16.0) g/dL Hct 35.5 L (37.0-47.0) % MCV 91.5 (81.0-99.0) fL MCH 30.4 (27.0-31.0) pg MCHC 33.2 (32.0-36.0) g/dL RDW 13.4 (12.0-15.0) % Plt Count 196 (130-450) 10^3/uL MPV 9.6 (7.9-10.8) fL Neut # (Auto) 11.1 H (1.5-6.6) 10^3/uL Lymph # (Auto) 1.3 L (1.5-3.5) 10^3/uL Aiken # (Auto) 0.9 (0.0-1.0) 10^3/uL Eos # (Auto) 0.0 (0.0-0.7) 10^3/uL Baso # (Auto) 0.1 (0.0-0.1) 10^3/uL Absolute Nucleated RBC 0.01 x10^3/uL Nucleated RBC % 0.0 /100WBC Uric Acid 6.7 (2.6-7.2) mg/dL Magnesium 5.9 H* (1.7-2.8) mg/dL AST 24 (10-42) IU/L Lactate Dehydrogenase (91-225) IU/L Blood Type 03/27/18 03/26/18 03/26/18 Range/Units 08:12 23:35 23:35 WBC 11.5 H (4.8-10.8) x10^3/uL RBC 3.76 L (4.20-5.40) 10^6/uL Hgb 11.5 L (12.0-16.0) g/dL Hct 33.8 L (37.0-47.0) % MCV 89.7 (81.0-99.0) fL MCH 30.5 (27.0-31.0) pg MCHC 34.1 (32.0-36.0) g/dL RDW 13.0 (12.0-15.0) % Plt Count 189 (130-450) 10^3/uL MPV 10.2 (7.9-10.8) fL Neut # (Auto) 9.3 H (1.5-6.6) 10^3/uL Lymph # (Auto) 1.4 L (1.5-3.5) 10^3/uL Aiken # (Auto) 0.6 (0.0-1.0) 10^3/uL Eos # (Auto) 0.0 (0.0-0.7) 10^3/uL Baso # (Auto) 0.1 (0.0-0.1) 10^3/uL Absolute Nucleated RBC 0.00 x10^3/uL Nucleated RBC % 0.0 /100WBC Uric Acid 3.9 (2.6-7.2) mg/dL Magnesium (1.7-2.8) mg/dL AST 12 (10-42) IU/L Lactate Dehydrogenase 157 (91-225) IU/L Blood Type 03/26/18 03/26/18 03/26/18 Range/Units 23:35 23:25 21:41 WBC (4.8-10.8) x10^3/uL RBC (4.20-5.40) 10^6/uL Hgb (12.0-16.0) g/dL Hct (37.0-47.0) % MCV (81.0-99.0) fL MCH (27.0-31.0) pg MCHC (32.0-36.0) g/dL RDW (12.0-15.0) % Plt Count (130-450) 10^3/uL MPV (7.9-10.8) fL Neut # (Auto) (1.5-6.6) 10^3/uL Lymph # (Auto) (1.5-3.5) 10^3/uL Aiken # (Auto) (0.0-1.0) 10^3/uL Eos # (Auto) (0.0-0.7) 10^3/uL Baso # (Auto) (0.0-0.1) 10^3/uL Absolute Nucleated RBC x10^3/uL Nucleated RBC % /100WBC Uric Acid (2.6-7.2) mg/dL Magnesium 5.2 H* (1.7-2.8) mg/dL AST (10-42) IU/L Lactate Dehydrogenase 126 (91-225) IU/L Blood Type O POSITIVE
[2018-03-27 18:20] LABS: BASOPHILS # (AUTO) 0.1 10^3/uL (0.0-0.1); BASOPHILS % (AUTO) 0.5 %; EOSINOPHILS % (AUTO) 0.1 %; HGB - HEMOGLOBIN 9.9 g/dL (12.0-16.0); LYMPHOCYTES # (AUTO) 1.2 10^3/uL (1.5-3.5); LYMPHOCYTES % (AUTO) 7.8 %; MEAN CORPUSCULAR HEMOGLOBIN 30.2 pg (27.0-31.0); MEAN CORPUSCULAR VOLUME 91.5 fL (81.0-99.0); MEAN PLATELET VOLUME 9.6 fL (7.9-10.8); MONOCYTES # (AUTO) 0.9 10^3/uL (0.0-1.0); MONOCYTES % (AUTO) 5.7 %; NEUTROPHILS # (AUTO) 13.1 10^3/uL (1.5-6.6); NEUTROPHILS % (AUTO) 85.9 %; PLT - PLATELET COUNT 173 10^3/uL (130-450); RED BLOOD COUNT 3.26 10^6/uL (4.20-5.40); WHITE BLOOD COUNT 15.3 x10^3/uL (4.8-10.8)
[2018-03-27 18:31] LABS: URIC ACID 6.9 mg/dL (2.6-7.2)
[2018-03-27] MEDS: DOCUSATE SODIUM 100 MG CAPSULE PO SCH (20:30)
[2018-03-28] MEDS: MAGNESIUM SULFATE IN WATER 20 GM/500 ML IV.SOLN IV SCH (02:05)
[2018-03-28] MEDS: IBUPROFEN 800 MG TABLET PO PRN ×2 (07:34→17:07)
--- NOTE | 2018-03-28 10:29 | PROVIDER PROGRESS NOTE ---
Subjective - Subjective Subjective: S: Bonding well with baby. Some difficulty with and getting baby to latch well as she is sleepy at the breast. Was able to hand express colostrum and spoon feed, followed by pumping and syringe feeding without difficulty. She sleep minimally throughout the night due to discomfort of iglesias catheter. She is anxious to be off the MgSO4 and have the iglesias removed so she can take a shower and move freely. Pain well controlled with ibuprofen and tylenol. Bleeding minimal. supportive at the bedside. O: BP 116/72, HR 78, RR 18, T36.6; Heart RRR w/o M/G/R, lungs CTAB, abdomen soft and nontender with fundus firm at U-2. Bilateral LE's no edema. DTRs 2+, no clonus. A: 27yo -->P1 s/p TSVD of viable female infant Severe preeclampsia S/p MgSO4 6 gram loading dose and 2g/hr maintenance dose. Will be 24 hours at 1002. Labetalol 100mg PO bid - normotensive P:D/C MgSO4 administration and iglesias catheter @ 24 hours Saline lock at 24 hours pp Plan serial BP monitoring today. Repeat PIH labs. Continue Labetalol 100mg PO bid Continue routine pp care and meds. Dr. Doss aware of patient status and agrees with above plan. She and deny further questions or concerns at this time. Plan discharge home tomorrow. Objective - Vital Signs/Intake & Output Vital Signs: Vital Signs x48h Temp Pulse Resp BP Pulse Ox 03/28/18 08:45 36.6 C 78 18 116/72 99 03/28/18 04:40 36.7 C 76 16 115/69 99 Intake & Output: Intake & Output 03/25/18 03/26/18 03/27/18 03/28/18 23:59 23:59 23:59 23:59 Intake Total 694.815 8611.533 600 Output Total 275 2024 2675 Balance -74.650 347.533 -2075 - Lab Results Fish Bones: 03/27/18 18:14 Other Labs: Lab Results x24hrs 03/28/18 03/27/18 03/27/18 Range/Units 05:45 18:14 18:14 WBC (4.8-10.8) x10^3/uL RBC (4.20-5.40) 10^6/uL Hgb (12.0-16.0) g/dL Hct (37.0-47.0) % MCV (81.0-99.0) fL MCH (27.0-31.0) pg MCHC (32.0-36.0) g/dL RDW (12.0-15.0) % Plt Count (130-450) 10^3/uL MPV (7.9-10.8) fL Neut # (Auto) (1.5-6.6) 10^3/uL Lymph # (Auto) (1.5-3.5) 10^3/uL Gordon # (Auto) (0.0-1.0) 10^3/uL Eos # (Auto) (0.0-0.7) 10^3/uL Baso # (Auto) (0.0-0.1) 10^3/uL Absolute Nucleated RBC x10^3/uL Nucleated RBC % /100WBC Uric Acid 6.9 (2.6-7.2) mg/dL Magnesium 5.6 H* 6.2 H* (1.7-2.8) mg/dL AST 26 (10-42) IU/L Lactate Dehydrogenase (91-225) IU/L 03/27/18 03/27/18 Range/Units 18:14 18:14 WBC 15.3 H (4.8-10.8) x10^3/uL RBC 3.26 L (4.20-5.40) 10^6/uL Hgb 9.9 L (12.0-16.0) g/dL Hct 29.8 L (37.0-47.0) % MCV 91.5 (81.0-99.0) fL MCH 30.2 (27.0-31.0) pg MCHC 33.0 (32.0-36.0) g/dL RDW 13.0 (12.0-15.0) % Plt Count 173 (130-450) 10^3/uL MPV 9.6 (7.9-10.8) fL Neut # (Auto) 13.1 H (1.5-6.6) 10^3/uL Lymph # (Auto) 1.2 L (1.5-3.5) 10^3/uL Gordon # (Auto) 0.9 (0.0-1.0) 10^3/uL Eos # (Auto) 0.0 (0.0-0.7) 10^3/uL Baso # (Auto) 0.1 (0.0-0.1) 10^3/uL Absolute Nucleated RBC 0.01 x10^3/uL Nucleated RBC % 0.0 /100WBC Uric Acid (2.6-7.2) mg/dL Magnesium (1.7-2.8) mg/dL AST (10-42) IU/L Lactate Dehydrogenase 234 H (91-225) IU/L
[2018-03-28] MEDS: LABETALOL 100 MG TABLET PO SCH ×2 (10:32→21:52)
[2018-03-28] MEDS: SODIUM CHLORIDE FLUSH 0.9% 10 ML SYRINGE IVP SCH ×3 (10:32→10:33)
[2018-03-28] MEDS: DOCUSATE SODIUM 100 MG CAPSULE PO SCH ×2 (10:32→21:52)
[2018-03-28 11:38] LABS: BASOPHILS % (AUTO) 0.3 %; EOSINOPHILS % (AUTO) 0.3 %; HGB - HEMOGLOBIN 9.2 g/dL (12.0-16.0); LYMPHOCYTES # (AUTO) 1.2 10^3/uL (1.5-3.5); LYMPHOCYTES % (AUTO) 10.6 %; MEAN CORPUSCULAR HEMOGLOBIN 30.7 pg (27.0-31.0); MEAN CORPUSCULAR HGB CONC 33.5 g/dL (32.0-36.0); MEAN CORPUSCULAR VOLUME 91.6 fL (81.0-99.0); MEAN PLATELET VOLUME 9.2 fL (7.9-10.8); MONOCYTES # (AUTO) 0.6 10^3/uL (0.0-1.0); MONOCYTES % (AUTO) 5.4 %; NEUTROPHILS # (AUTO) 9.4 10^3/uL (1.5-6.6); NEUTROPHILS % (AUTO) 83.4 %; PLT - PLATELET COUNT 173 10^3/uL (130-450); RED CELL DISTRIBUTION WIDTH 13.5 % (12.0-15.0); WHITE BLOOD COUNT 11.3 x10^3/uL (4.8-10.8)
[2018-03-28 11:50] LABS: URIC ACID 6.4 mg/dL (2.6-7.2)
[2018-03-29] MEDS: IBUPROFEN 800 MG TABLET PO PRN (01:51)
[2018-03-29] MEDS: SODIUM CHLORIDE FLUSH 0.9% 10 ML SYRINGE IVP SCH (02:29)
[2018-03-29] MEDS: DOCUSATE SODIUM 100 MG CAPSULE PO SCH (10:29)
[2018-03-29] MEDS: LABETALOL 100 MG TABLET PO SCH (10:30)
[2018-03-29 13:43] VITALS: BP 121/72
--- NOTE | 2018-03-29 14:08 | Discharge Plan ---
Discharge Plan Disposition: 01 Home, Self Care Condition: Good Diet: Regular Activity Restrictions: No Restrictions Shower Restrictions: No Driving Restrictions: No Weight Bearing: Full Weight No Smoking: If you smoke, Please STOP! Call for help. Follow-up with: Aleshia Milner CNM, ARNP [Provider Admit Priv/Credential] -
--- NOTE | 2018-03-29 14:21 | PROVIDER PROGRESS NOTE ---
Subjective - Subjective Subjective: FINAL PROGRESS NOTE: S: Bonding well with baby. Continues to have some difficulty with getting baby to latch well. She can feel her milk is starting to come in and is able to pump and/or hand express. Pain well controlled with ibuprofen. Perineum comfortable. Mood is good. Denies SHEEHAN, visual disturbances, RUQ or epigastric pain. and mother supportive at the bedside. O: BP 212/71, HR 84, T 37.0, RR 18, O2 99 Hgb 11.5-->11.8-->9.9-->9.2 Hct 33.8-->35.5-->29.8-->27.4 PLT 189-->196-->173-->173 Uric acid 3.9-->6.7-->6.9-->6.4 AST 12-->24-->26-->26-->22 LDH 126-->157-->234-->253 Heart RRR w/o M/G/R, lungs CTAB, abdomen soft and nontender with fundus firm at U-2, bilateral LE's no edema. Daniel's neg. A: 27yo -->P1 s/p TSVD of viable female over intact perineum Severe pre-eclampsia s/p MgSO4 6g bolus followed by 2g/hr maintenance dose continued for 24 hours . She has been afebrile and normotensive for the duration of her stay. >24 hours off the MgSO4. Currently taking 100mg PO labetalol bid and is normotensive. P: Reviewed self care and warning signs/symptoms. She is returning for a weight check for baby tomorrow and will have BP check at that time. Rx handwritten for 100mg Labetalol PO bid #60 with 2 refills and Ibuprofen 800mg 1 tab PO q 8hrs PRN pain #60 with 2 refills. Advised continuation of PNV while . Reviewed PIH warning s/sx and when to present. She intends to f/u with myself at [facility] in 1 week for /BP evaluation and then in 3 weeks for visit. She and her verbalized understanding and agrees to above plan. They deny further questions or concerns at this time. Objective - Vital Signs/Intake & Output Vital Signs: Vital Signs x48h Temp Pulse Resp BP Pulse Ox 03/29/18 13:43 37.0 C 84 18 121/72 99 03/29/18 09:50 37.1 C 86 18 123/73 100 03/29/18 06:58 37.2 C 16 Intake & Output: Intake & Output 03/26/18 03/27/18 03/28/18 03/29/18 23:59 23:59 23:59 23:59 Intake Total 500.818 7095.533 3114.167 430 Output Total 275 5 5380 Balance -74.650 347.533 -2265.833 430 - Lab Results Fish Bones: 03/28/18 11:30
--- NOTE | 2018-04-02 07:10 | DISCHARGE SUMMARY ---
Physician: DESTINEE Pennington DATE OF ADMISSION: 03/26/2018 DATE OF DISCHARGE: 03/29/2018 DIAGNOSES ON ADMISSION: 1. A 27-year-old G2, P0-0-1-0 with a 38-week intrauterine . 2. Severe preeclampsia. DIAGNOSES ON DISCHARGE: 1. A 27-year-old G2, P1-0-1-1, status post spontaneous vaginal delivery on 03/27/2018. 2. Status post magnesium sulfate 6 gram bolus followed by 2 grams per hour maintenance dose continue d for 24 hours . She has been afebrile and normotensive for the duration of her stay. 3. Greater than 24 hours off magnesium sulfate. 4. Currently taking 100 mg p.o. labetalol b.i.d. and is normotensive. BRIEF HISTORY: She is a patient at [facility] who presented on 03/26/2018 from [facility] for evaluation of acute hypertension. Lab evaluation met diagnostic criteria for preeclampsia. Cervix was noted to be 380 -2 and she was admitted to [facility] for active management. Labetalol 100 mg p.o. administered and has adequately controlled her b lood pressure throughout her labor course. She received magnesium sulfate 6 gram bolus dose followed by magnesium sulfate 2 grams per hour maintenance dose. AROM at 1900 on 03/26/2018 for a moderate a mount of clear fluid. Pitocin administered for augmentation of labor for a max dosage of 18. She sp ontaneously delivered a viable female infant named Liza on 03/27/2018 at 1002. Apgars 7 and 8 at one and five minutes respectively. The perineum, vagina and cervix were inspected and found to be i ntact. She has been doing well on her course. She is ambulating and tolerating a regular diet. She is urinating without difficulty and her lochia is normal. Her pain is well controlled wi th oral medications. She will be discharged home today on day #3 with prescriptions for i buprofen and labetalol 100 mg p.o. b.i.d. [facility] for a visit and blood pressure evaluation. She has been given precauti ons to call if she has any worsening fevers, chills, abdominal pain, increased bleeding, foul-smellin g vaginal lochia, headache, blurred vision, double vision, right upper quadrant or epigastric pain, o r worsening edema. TD: 04/01/2018 10:51
== END 2018-03-29 16:30 | disposition home or self-care (01) | DRG 775 ==
LOC: WFO 14:50 → FBP 14:51 → WFO 16:49 → FBP 16:50
PROVIDERS: ADMIT Nurse Practitioner Obstetrics & Gynecology; ATTEND Nurse Practitioner Obstetrics & Gynecology
PROC: 10907ZC Drainage of Amniotic Fluid, Therapeutic from Products of Conception, Via Natural or Artificial Opening (ICD-10-PCS; 2018-03-26)
PROC: 10E0XZZ Delivery of Products of Conception, External Approach (ICD-10-PCS; principal; 2018-03-27)
DX: O14.14 Severe pre-eclampsia complicating childbirth (principal); Z3A.38 38 weeks gestation of pregnancy; Z37.0 Single live birth
CPT/HCPCS: 36415; 82570; 83615; 83735; 84156; 84450; 84550; 85025; 86900; 86901; 99213

== ENCOUNTER 2018-03-30 08:00 | Outpatient (CLI) | payer OTHER ==
[2018-03-30 16:40] LABS: BILIRUBIN,URINE NEGATIVE (NEGATIVE); GLUCOSE, URINE (UA) NEGATIVE (NEGATIVE); KETONES,URINE (UA) NEGATIVE (NEGATIVE); LEUKOCYTE ESTERASE, URINE TRACE (NEGATIVE); NITRITE,URINE NEGATIVE (NEGATIVE); OCCULT BLOOD,URINE LARGE (NEGATIVE); PH,URINE 6.5 PH (5.0-7.5); PROTEIN,URINE TRACE mg/dL (NEGATIVE); UROBILINOGEN,URINE 0.2 (NORMAL) E.U./dL (NORMAL)
[2018-03-30 16:53] LABS: CLARITY,URINE SL. CLOUDY (CLEAR)
[2018-03-30 16:54] LABS: BACTERIA,URINE Few /HPF (None Seen); RBC,URINE TNTC /HPF (0-5); SQUAMOUS EPITHELIAL CELL,UR FEW Squamous (<= Few); WBC CLUMPS,URINE PRESENT
== END 2018-03-30 08:01 | disposition home or self-care (01) ==
LOC: LAB.R 08:00
PROVIDERS: ATTEND Nurse Practitioner Obstetrics & Gynecology
DX: R30.0 Dysuria (principal)
CPT/HCPCS: 81001; 81003; 87077; 87086; 87181

== ENCOUNTER 2018-03-30 15:25 | Outpatient (CLI) | payer OTHER | END 2018-03-30 15:26 | disposition home or self-care (01) | LOC: LAB 15:25 | PROVIDERS: ATTEND Nurse Practitioner Obstetrics & Gynecology | DX: R30.0 Dysuria (principal) | CPT/HCPCS: 81001; 81003; 87086 ==

== ENCOUNTER 2019-02-21 15:43 | Emergency (ER) | payer OTHER ==
[2019-02-21] MEDS ORDERED: LOPERAMIDE 2 MG CAPSULE PO STA (17:00)
[2019-02-21] MEDS ORDERED: IBUPROFEN 800 MG TABLET PO STA (17:00)
--- NOTE | 2019-02-21 17:07 | ED Physician Documentation ---
History of Present Illness - Stated complaint Stated Complaint: FLU SYMPTOMS - Chief complaint Chief Complaint: Abd Pain - History obtained from History obtained from: Patient - Additonal information Additional information: The patient is a 28-year-old female who complains of cold and flu symptoms for the past week, with myalgias, sore throat, and more recently watery diarrhea for the past 2 days. She reports occasional cramping abdominal discomfort associated with the diarrhea. She reports nausea, without vomiting. She denies fever, dysuria, or lightheadedness. Her last menstrual period ended 2 days ago. Review of Systems Constitutional: reports: Myalgias. denies: Fever Eyes: denies: Irritation Ears: denies: Ear pain Nose: denies: Congestion Throat: reports: Sore throat Cardiac: denies: Chest pain / pressure Respiratory: reports: Cough (slight). denies: Dyspnea GI: reports: Abdominal Pain (Occasional cramping), Nausea, Diarrhea. denies: Vomiting : reports: LMP (Ended 2 days ago.). denies: Dysuria Skin: denies: Rash Musculoskeletal: denies: Back pain Neurologic: reports: Headache (mild). denies: Focal weakness, Numbness PD PAST MEDICAL HISTORY - Past Medical History Respiratory: None Endocrine/Autoimmune: None - Past Surgical History Past Surgical History: No - Present Medications Home Medications: Ambulatory Orders Medication Instructions Recorded Confirmed Loperamide [Imodium] 2 mg PO QID PRN #10 capsule 02/21/19 - Allergies Allergies/Adverse Reactions: Allergies Allergy/AdvReac Type Severity Reaction Status Date / Time No Known Drug Allergies Allergy Verified 02/21/19 16:01 - Social History Does the pt smoke?: No Smoking Status: Never smoker Does the pt drink ETOH?: No Does the pt have substance abuse?: No - Immunizations Immunizations are current?: Yes - POLST Patient has POLST: No PD ED PE NORMAL - Vitals Vital signs reviewed: Yes (Normal.) - General General: Alert and oriented X 3, Well developed/nourished - HEENT HEENT: Atraumatic, EOMI, Ears normal, Pharynx benign - Neck Neck: Supple, no meningeal sign, No adenopathy, No JVD - Cardiac Cardiac: RRR - Respiratory Respiratory: No respiratory distress, Clear bilaterally - Abdomen Abdomen: Soft, Non tender - Back Back: No CVA TTP - Derm Derm: No rash - Extremities Extremities: No edema, No calf tenderness / cord - Neuro Neuro: Alert and oriented X 3, No motor deficit, Normal speech Results - Vitals Vitals: Oxygen O2 Source Room air PD MEDICAL DECISION MAKING - ED course Complexity details: reviewed results, re-evaluated patient, considered differential, d/w patient ED course: The patient's presentation is most consistent with viral syndrome with diarrhea most likely due to viral gastroenteritis. She does not appear dehydrated, and has no respiratory distress. Her abdominal exam is benign. Treatment in the emergency department included administration of ibuprofen 800 mg orally and Imodium 2 mg orally. She is being discharged with prescription for Imodium. I discussed with her the likely course of illness, symptomatic treatment and outpatient follow-up, as well as potentially worrisome signs or symptoms that should prompt reevaluation in the emergency department. Departure - Departure Disposition: 01 Home, Self Care Clinical Impression: Acute viral syndrome Diarrhea Qualifiers: Diarrhea type: unspecified type Qualified Code(s): R19.7 - Diarrhea, unspecified Condition: Stable Health Concerns: diarrhea, myalgias, and sore throat. Plan of Treatment: Symptomatic relief for viral syndrome: oral fluids, ibuprophen, imodium. Care Goals: recovery from viral syndrome. Assessment: see above. Instructions: ED Diarrhea Viral Follow-Up: Ralph Regan MD [Primary Care Provider] - Prescriptions: Loperamide [Imodium] 2 mg PO QID PRN #10 capsule PRN Reason: Diarrhea Comments: Drink plenty of fluids. Use ibuprofen as needed for muscle aches or fever. Use Imodium as prescribed if needed for diarrhea. Follow-up with your primary physician within 1 week. Call to schedule appointment. Return to the emergency department if increasing abdominal pain, dehydration, or otherwise worsening symptoms. Forms: Activity restrictions Discharge Date/Time: 02/21/19 17:37
[2019-02-21 17:14] VITALS: BP 117/89
[2019-02-21] MEDS ORDERED: IBUPROFEN 800 MG TABLET PO ONE (17:15)
== END 2019-02-21 17:37 | disposition home or self-care (01) ==
LOC: ED 15:43
DX: B34.9 Viral infection, unspecified (principal); R19.7 Diarrhea, unspecified
CPT/HCPCS: 99282; 99283; A9270

== ENCOUNTER 2024-04-08 10:54 | Outpatient (CLI) | payer OTHER ==
--- NOTE | 2024-04-09 08:08 | Ultrasound Report ---
LIMITED ULTRASOUND OF RIGHT BREAST: 04/08/2024 CLINICAL: Patient returns today to evaluate a focal asymmetry in the right breast. Comparison is made to exam dated: 04/08/2024 mammogram - [facility]. Color flow and real-time ultrasound of the right breast 10-11 o'clock, and retroareolar regions were performed. Canela scale images of the real-time examination were reviewed. No sonographic abnormality is seen in the area of clinical concern in the retroareolar region. There is benign duct ectasia. At 11 o'clock, 7 cm from the nipple, there is a benign intramammary lymph node measuring 0.6 cm. Thi s correlates with mammography findings. IMPRESSION: BENIGN No sonographic abnormality in the area of clinical concern in the retroareolar region. Right breast 0 .6 cm intramammary lymph node at 11 o'clock is benign. No mammographic or sonographic evidence of ma lignancy. Recommend initiating routine screening mammograms at age 40. Clinical follow-up is also recommended, and further management of palpable abnormalities or other foc al signs or symptoms should be based on the results of clinical evaluation. If palpable abnormality o r other concerning symptom persists or progresses, further clinical evaluation should be considered. Findings and recommendations were conveyed to the patient during today's evaluation. This exam was interpreted at Station ID: [id number]. Electronically Signed By: Leonila Rehman M.D., Ph.D. eb/:04/08/2024 12:45:54 Ultrasound BI-RADS: 2 Benign BI-RADS CATEGORY: (2) - 2 Unspecified - other recall n/a LATERALITY: (B)
--- NOTE | 2024-04-09 08:08 | Mammography Report ---
BILATERAL DIGITAL DIAGNOSTIC MAMMOGRAM 3D/2D: 04/08/2024 CLINICAL: Baseline exam. Skin lesion on right areola, which have decreased since completing recent co arse of antibiotics for right breast mastitis. No prior exams were available for comparison. Both breasts are heterogeneously dense, which may obscure small masses (category c / 51-75% glandular tissue). There is a 0.6 cm oval mass with a circumscribed margin in the right axillary tail. Additional mammog raphic views of the right subareolar region demonstrate no mammographic abnormality. No other significant masses, calcifications, or other findings are seen in either breast. IMPRESSION: INCOMPLETE: NEEDS ADDITIONAL IMAGING EVALUATION 1) Right breast 0.6 cm oval mass in the axillary tail. Finding resembles a lymph node. An ultrasound is recommended for further evaluation and is scheduled to immediately follow this examination. 2) No mammographic abnormality in the area of clinical concern in the right retroareolar region. An u ltrasound is recommended for further evaluation and is scheduled to immediately follow this examinati on. Based on Tyrer-Cuzick model (a risk assessment model), the patient's lifetime risk is 25.1% and her 1 0 year risk is 1.9%. If a patient has an elevated risk, a more comprehensive evaluation should be con sidered and/or a referral to a genetic counselor. The [employer] [place] [employer], [employer] [place] [employer], and NCCN Guidelines advise the consideration of Breast MRI as an adjunct to screening mammog afua in patients whose "Lifetime risk to develop breast cancer" is 20% or higher. This exam was interpreted at Station ID: [id number]. NOTE: For mammograms, a report in lay terms will be sent to the patient. Approximately 15% of breast malignancies will not be visualized mammographically. In the management of a palpable breast mass, a negative mammogram must not discourage biopsy of a clinically suspicious lesion. Electronically Signed By: Leonila Rehman M.D., Ph.D. eb/:04/08/2024 11:41:29 ACR BI-RADS Category 0: Incomplete 3340F PARENCHYMAL PATTERN: (D) - The breast(s) demonstrate(s) heterogeneously dense fibroglandular parenchy ma. BI-RADS CATEGORY: (0) - 0 Ultrasound [id number] Immediate follow-up LATERALITY: (B)
== END 2024-04-08 10:55 | disposition home or self-care (01) ==
LOC: DI 10:54
DX: N64.4 Mastodynia (principal); R92.333 Mammographic heterogeneous density, bilateral breasts